=== PATIENT | male | born 1945 | race Caucasian/White ===

== ENCOUNTER 2022-04-30 15:18 | Emergency (ER) | payer MEDICARE, SELFPAY ==
--- NOTE | ~2022-04-30 | XR_ITS ---
EXAMINATION:XR_[id number] DATE: 04/30/2022 16:39 INDICATION: Neck pain TECHNIQUE: AP, lateral, lateral swimmers and odontoid views of the cervical spine are provided. COMPARISON: None FINDINGS: There are 2 mm of anterolisthesis of C4 on C5 and 1 mm retrolisthesis of C5 on C6. The odon toid is intact. No fracture is identified. The vertebral body heights are maintained. There is severe loss of intervertebral disc space height at C5-6 and C6-7. Prevertebral soft tissues are normal. The re is severe multilevel facet and uncovertebral joint osteoarthritis. IMPRESSION: 1. Severe cervical spondylosis without acute findings. Reviewed, dictated and finalized at location L.
--- NOTE | ~2022-04-30 | XR_ITS ---
EXAMINATION: XR shoulder RT min 2V DATE: 04/30/2022 15:51 INDICATION: Right shoulder pain post fall TECHNIQUE: AP internally and externally rotated, AP oblique externally rotated and axillary views of the right shoulder were obtained. COMPARISON: None FINDINGS: Normal alignment. No fracture.Mild glenohumeral and acromioclavicular osteoarthritis. Visualized por tion of the right lung are clear. Soft tissues are unremarkable. IMPRESSION: Mild right glenohumeral and acromioclavicular osteoarthritis. No acute osseous abnormality. Reviewed, dictated and finalized at location A.
[2022-04-30 15:39] VITALS: BP 125/70; PULSE 50; RESP 18; TEMP 36.8; O2SAT 97
--- NOTE | 2022-04-30 15:46 | ED.UPPEXIN ---
HPI - Extremity Injury (Upper) General Chief Complaint: Extremity Injury, Upper Stated Complaint: fall Time Seen by Provider: 04/30/22 15:46 History of Present Illness HPI narrative: Sathya Retana is a 77 yo male with no PMH who fell today on the wet grass onto his right shoulder. He has difficulty moving his R arm, barely can striaghten it to 90 degrees without pain.After sitting in room weaiting on Xray results, abrasion apparent to R cheek and feels tightness in neck- will Xray cervical spine also Related Data Allergies Allergy/AdvReac Type Severity Reaction Status Date / Time No Known Allergies Allergy Verified 04/30/22 15:46 Review of Systems Review of Systems: CONSTITUTIONAL: Denies fever, chills, sweats. EYES: Denies visual changes, redness, discharge. ENT: Denies rhinorrhea, congestion, sore throat, otalgia. CARDIOVASCULAR: Denies chest pain, palpitations, edema. RESPIRATORY: Denies dyspnea, wheezing, cough GASTROINTESTINAL: Denies abdominal pain, nausea, vomiting, diarrhea. GENITOURINARY: Denies dysuria, hematuria, abnormal discharge SKIN: Denies rash or itching. NEUROLOGIC: Denies numbness, or focal weakness. PSYCHIATRIC: Denies anxiety or depression. The R/L shoulder is without obvious asymmetry or deformity when comparing to R/L shoulder. Pain with lifting; denies head or neck pain Later, stated neck feels tight on R and small red abrasion to R upper cheek bone PMFSH Past Medical History Medical History Detached retina Social History Social History (Updated 04/30/22 @ 15:49 by Dagmar Morton CNP) Smoking status: Never smoker Living arrangements: with family Comments At time of signature, I agree with nursing past medical, surgical, social and family history. There is no relevant family history pertinent to the presenting complaint. Exam Narrative: GENERAL: This is a well-nourished, well-developed patient, in mild distress. HEAD: normocephalic, atraumatic. EYES: PERRL. Sclera clear/white. Vision is grossly intact. EARS: External ears normal, auditory canals clear and without drainage, TMs normal without perforation. Hearing grossly intact. NOSE: External nose normal without nasal discharge, nares without redness, no rhinorrhea. THROAT: Mucous membranes moist, posterior pharynx NECK: Neck supple, non-tender CARDIOVASCULAR: Regular rate and rhythm without murmurs, gallops, or rubs. RESPIRATORY: Clear to auscultation. Breath sounds equal bilaterally. No wheezes, rales, or rhonchi. GASTROINTESTINAL: Abdomen soft, non-tender, SKIN: warm, intact with no suspicious lesions or rash, good texture and turgor.small red abrasion to R upper cheek and oriental orthodox NEURO: awake, alert, and oriented to person, place and time. There were no obvious focal neurologic abnormalities. Steady gait EXTREMITIES: Normal range of motion. R arm can elevate to 80 degrees without pain; now complaining of tightness R side of neck BACK: Nontender without deformity Course Course Emergency Course: Fell on the wet grass today when he tripped over his foot and fell onto her right shoulder Xray right shoulder shows no fracture mild glenohumeral and acromioclavicular osteoarthritis visualized right portion lungs are clear soft tissue unremarkable Cervical spine [id number] cervical spondylosis without acute findings, 2 mm and throat lithiasis of C4 on C5 and 1 mm retrolithiasis of C5 and C6 the odontoid is intact no fracture is identified vertebral body heights are maintained placed in sling; given baclofen 5 mg twice a day patient is not to drive until he sees how sleepy it makes him Level of Care: Express Care Visit Vital Signs Vital signs: Vital Signs Temperature 98.3 F 04/30/22 15:39 Pulse Rate 50 L 04/30/22 15:39 Respiratory Rate 18 04/30/22 15:39 Blood Pressure 125/70 04/30/22 15:39 Pulse Oximetry 97 04/30/22 15:39 Oxygen Delivery Room Air 04/30/22 15:39
== END 2022-04-30 16:55 | disposition home or self-care (01) ==
PROVIDERS: Emergency Provider Nurse Practitioner; PCP Family Medicine
DX: M25.511 Pain in right shoulder (principal); S16.1XXA Strain of muscle, fascia and tendon at neck level, initial encounter; W19.XXXA Unspecified fall, initial encounter
CPT/HCPCS: 72040; 73030; 99214; A4565; G0463

== ENCOUNTER 2022-11-11 17:07 | Emergency (ER) | payer MEDICARE, SELFPAY ==
[2022-11-11] VITALS (13 sets, daily range): BP systolic 107–155; BP diastolic 51–79; PULSE 56–90; RESP 16–61; TEMP 36.4; O2SAT 88–100
--- NOTE | ~2022-11-11 | CT_ITS ---
EXAMINATION: CT abdomen pelvis w con DATE: 11/11/2022 20:11 INDICATION: Bilateral lower abdominal pain. TECHNIQUE: Computed tomography (CT) of the abdomen and pelvis was performed with 100 mL Omnipaque-350 intravenous contrast. Automated exposure control and iterative reconstruction technique were employe d. The dose-length product was 351.68 mGy-cm. COMPARISON: None FINDINGS: Mild linear discoid atelectasis/scarring the bilateral lower lobes with bronchiectatic changes at the posterior basilar left lower lobe. Heart size is normal. No pericardial or pleural effusion. Small s liding-type hiatal hernia. 5.3 cm cyst in the left hepatic lobe. Mild focal hepatic steatosis at the ligamentum teres. Gallbladder, pancreas, spleen and bilateral adrenal glands are normal. Parapelvic c ysts at both kidneys. 2 mm stone at the left ureterovesicular junction with mild left hydroureteronep hrosis and small amount anterior left perinephric stranding. Moderate scattered colonic diverticulosi s. There is focal wall thickening and mild inflammatory stranding along the ascending colon consisten t with diverticulitis. Small bowel and appendix are normal. Bladder is normal. Prostatomegaly measuri ng 6.0 x 4.7 cm. No free intraperitoneal gas or fluid. No pathologically enlarged abdominal or pelvic lymphadenopathy. Postoperative change of bilateral inguinal hernia repairs. Lumbar dextroscoliosis w ith severe spondylosis. IMPRESSION: 1. Radiographically uncomplicated diverticulitis along the ascending colon. 2. 2 mm obstructing stone at left ureterovesicular junction with mild left hydronephrosis and perinep hric stranding. Correlate with urinalysis. 3. Hiatal hernia. Reviewed, dictated and finalized at location A. [facility] IMPRESSION: 1. Radiographically uncomplicated diverticulitis along the ascending colon. 2. 2 mm obstructing stone at left ureterovesicular junction with mild left hydr onephrosis and perinephric stranding. Correlate with urinalysis. 3. Hiatal hernia.
[2022-11-11 18:30] LABS: Basophils Percent Auto 0.2 % (0.2-1.2); Hematocrit 44.4 % (42.0-52.0); Hemoglobin 15.1 g/dL (14.0-18.0); Immature Granulocyte Absolute 0.04 K/mm3 (0.00-0.031); Immature Granulocyte Percent A 0.3 % (0-0.5); Lymphocytes Absolute Auto 0.36 K/mm3 (0.9-3.2); Mean Corpuscular Hemoglobin 32.4 pg (26-34); Mean Corpuscular Volume 95.3 fl (80-100); Mean Platelet Volume 10.2 fl (7.4-10.4); Monocytes Absolute Auto 0.5 K/mm3 (0.1-0.6); Monocytes Percent Auto 3.7 % (2.6-8.5); Neutrophils Absolute Auto 11.3 K/mm3 (1.3-6.7); Neutrophils Percent Auto 92.8 % (45.5-73.1); Platelet Count Result 239 k/mm3 (150-375); Red Blood Count 4.66 M/mm3 (4.6-6.20); White Blood Count 12.2 K/mm3 (4.5-10.0)
[2022-11-11 18:44] LABS: Alanine Aminotransferase 22 U/L (6-50); Albumin Level 4.6 g/dL (3.5-5.1); Alkaline Phosphatase 57 U/L (38-126); Anion Gap 12 mmol/L (8-16); Aspartate Amino Transferase 23 U/L (17-59); Bilirubin,Total 1.2 mg/dL (0.2-1.3); Blood Urea Nitrogen 27 mg/dL (9-20); Calcium 9.4 mg/dL (8.4-10.2); Carbon Dioxide 21 mmol/L (22-30); Chloride 104 mmol/L (98-107); Estimated CRCL calculation 39 ml/min; Estimated Glomerular Filt Rate 46; Glucose 167 mg/dL (65-110); Lipase 63 U/L (23-300); Potassium 4.3 mmol/L (3.4-5.0); Sodium 137 mmol/L (137-145)
--- NOTE | 2022-11-11 19:28 | ED.ABDPAIN ---
HPI - Abdominal Pain General Chief Complaint: Abdominal Pain Stated Complaint: abdominal cramping Time Seen by Provider: 11/11/22 19:07 History of Present Illness HPI narrative: 77M w/no sig PMH, presents to the ED, complaining of bilateral lower abdominal pain, beginning earlier this evening, described as cramping, rated 8/10 and constant. He states he has not had a pain like this before. He vomited multiple times this evening without blood. He had a loose stool without blood and is able to pass gas. Related Data Allergies Allergy/AdvReac Type Severity Reaction Status Date / Time No Known Allergies Allergy Verified 04/30/22 15:46 Review of Systems Review of Systems: CONSTITUTIONAL: Denies fever, chills, or sweats. EYES: Denies visual changes, redness, or discharge. ENT: Denies rhinorrhea, congestion, sore throat, or otalgia. CARDIOVASCULAR: Denies chest pain, palpitations, or edema. RESPIRATORY: Denies cough or dyspnea. GASTROINTESTINAL: abdominal pain, nausea and vomiting, Denies diarrhea. GENITOURINARY: Dysuria denies hematuria. SKIN: Denies rash or itching. MUSCULOSKELETAL: Denies back pain, joint pain, or myalgia. NEUROLOGIC: Denies headache, numbness, dizziness, or weakness. PSYCHIATRIC: Denies anxiety or depression. PMFSH Past Medical History Medical History Detached retina Social History Social History (Updated 04/30/22 @ 15:49 by Dagmar Morton, LAILA) Smoking status: Never smoker Living arrangements: with family Exam Narrative: GENERAL: Well-developed, well-nourished, appears uncomfortable HEAD: Normocephalic, atraumatic. EYES: PERRLA and EOMI. ENT: Nares clear, no rhinorrhea or epistaxis. Mucous membranes moist. Oropharynx without tonsillar hypertrophy exudate or other lesions. CHEST: Clear to auscultation. No respiratory distress. No wheezes rales or rhonchi HEART: Regular rate and rhythm. No murmur heard. Normal peripheral pulses. ABDOMEN: Soft, diffusely tender to palpation, nondistended, normal active bowel sounds. No CVA tenderness to palpation EXTREMITIES: Normal range of motion. No edema. SKIN: Warm, dry, no rash. NEURO: No focal deficits. Alert and oriented x3. PSYCH: Normal mood and affect. Course Course Emergency Course: 20:25 - Received notification from Radiologist Dr. Garg. Uncomplicated diverticulitis and a 2mm left ureterolith was seen. The patient continues to complain of abdominal pain. He has not been able to provide a urine sample. Chemistries demonstrate mild dehydration. WBC mildly elevated at 12.2. 20:50 - Bladder scan shows patient only had 25mL in his bladder. Will give additional fluids. 23:00 - UA not concerning for UTI. The patient states his pain is much better. Will discharge. Discussed return and emergency precautions including signs/symptoms of acute abdomen. All questions answered to the patient's satisfaction. Vital Signs Vital signs: Vital Signs Temperature 97.6 F 11/11/22 17:26 Pulse Rate 90 11/11/22 17:26 Respiratory Rate 18 11/11/22 17:26 Blood Pressure 107/73 11/11/22 17:26 Pulse Oximetry 98 11/11/22 17:26 Temperature 97.6 F 11/11/22 17:26 Pulse Rate 56 L 11/11/22 23:01 Respiratory Rate 16 11/11/22 22:45 Blood Pressure 125/72 11/11/22 23:01 Pulse Oximetry 95 11/11/22 23:01 MDM - Abdominal Pain MDM Narrative Medical decision making narrative: PLan: Labs, imaging, pain control, reassess Differential Diagnosis Differential diagnosis: Likely calculus of kidney, diverticulitis, gastroenteritis, pancreatitis, small bowel obstruction and other (urinary retention, metabolic abnormality, Other) Lab Data 11/11/22 18:20 11/11/22 18:20 Labs: Lab Results 11/11/22 11/11/22 11/11/22 Range/Units 18:20 18:20 22:08 WBC 12.2 H (4.5-10.0) K/mm3 RBC 4.66 (4.6-6.20) M/mm3 Hgb 15.1 (14.0-18.0) g/dL Hct 44.4 (42.0-5
--- NOTE | 2022-11-11 19:30 | PC.NURSE ---
pt c/o lower abd pain and n/v since 30. denies any problems with urination/bowels.
[2022-11-11] MEDS: PROCHLORPERAZINE EDISYLATE 10 MG/2 ML VIAL IV PUSH (19:38)
[2022-11-11] MEDS: MORPHINE SULFATE (*CRX) 4 MG/ML INJ IV PUSH (19:39)
[2022-11-11] MEDS: SODIUM CHLORIDE 0.9% IV 1,000 ML 999 ML IV CONT (19:39)
[2022-11-11] MEDS: HYDROmorphone HCL INJ (*CRX) 1 MG/ML SYR 0.5 MG IV PUSH (20:28)
[2022-11-11] MEDS: SODIUM CHLORIDE 0.9% IV 1,000 ML 30 ML IV CONT (21:08)
[2022-11-11] MEDS: metroNIDAZOLE 250 MG TABLET 500 MG PO (21:11)
[2022-11-11] MEDS: CIPROFLOXACIN 500 MG TAB PO (21:12)
[2022-11-11 22:18] LABS: Appearance Urine Clear (Clear); Bilirubin Urine Negative (Negative); Blood Urine 2+ (Negative); Color Urine Yellow (Yellow); Glucose Urine UA Negative (Negative); Ketones Urine 3+ mg/dL (Negative); Leukocyte Esterase Ur Negative LEU/UL (Negative); Nitrate Urine Negative (Negative); Protein Urine Negative (Negative); Urobilinogen Urine 0.2 mg/dL (<2.0); pH Urine 5.5 (5.0-9.0)
[2022-11-11 22:26] LABS: Add Urine Microscopic? YES
== END 2022-11-12 00:08 | disposition home or self-care (01) ==
PROVIDERS: Emergency Medicine; Emergency Provider Preventive Medicine Aerospace Medicine; PCP Family Medicine
DX: N20.1 Calculus of ureter (principal); K57.92 Diverticulitis of intestine, part unspecified, without perforation or abscess without bleeding
CPT/HCPCS: 36415; 74177; 80053; 81001; 83690; 85025; 96361; 96374; 96375; 99284; A9270; J0131; J0780; J1170; J2270; J7030; Q9967

== ENCOUNTER 2024-02-03 08:14 | Emergency (ER) | payer MEDICARE, SELFPAY ==
[2024-02-03 08:26] VITALS: BP 112/65; PULSE 50; RESP 18; TEMP 36.4; O2SAT 100
--- NOTE | 2024-02-03 08:26 | ED.MALEGU ---
HPI - Male Genitourinary General Chief complaint: Urogenital-Male Stated complaint: Urinary Problems Time Seen by Provider: 02/03/24 08:26 Source: patient and RN notes reviewed Mode of arrival: ambulatory Limitations: no limitations History of Present Illness HPI Narrative: 78-year-old male presented for concern for UTI. He reports 3 days of pain with urination, decreased urinary output, and hesitancy. Pain is described as craming to lower abdomen. Reports hx kidney stones. Endorses chronic weak stream, unchanged. Denies hematuria, nausea, vomiting, abdominal pain, flank pain, constipation, diarrhea, fevers or chills. No treatment for symptoms. Has not had to f/u with urology, states stones were passed. Related Data Allergies Allergy/AdvReac Type Severity Reaction Status Date / Time No Known Allergies Allergy Verified 02/03/24 08:26 Review of Systems Review of Systems: CONSTITUTIONAL: Denies body aches, fever, chills, or sweats. CARDIOVASCULAR: Denies chest pain, palpitations, or edema. RESPIRATORY: Denies cough or dyspnea. GASTROINTESTINAL: Denies abdominal pain, nausea, vomiting, or diarrhea. GENITOURINARY: Reports dysuria, frequency, hesitancy, denies urgency, hematuria, flank pain SKIN: Denies rash, itching, or wounds. MUSCULOSKELETAL: Denies back pain or myalgia. [facility] Past Medical History Medical History Detached retina Social History Social History Smoking status: Never smoker Living arrangements: with family Comments At time of signature, I have reviewed and agree with nursing past medical, surgical, social and family history unless otherwise noted. Please see nursing chart for further information. There is no relevant family history pertinent to the presenting complaint Exam Narrative: GENERAL: Well-appearing and in no acute distress. ENT: Mucous membranes pink and moist. NECK: Normal AROM. Supple. CHEST: No respiratory distress. Clear to auscultation. HEART: Regular rate and rhythm. ABDOMEN: Soft, nontender, nondistended, normal active bowel sounds. No CVA tenderness SKIN: Warm, dry, no rash. NEURO: No focal deficits. Alert and oriented x3. Gait steady. PSYCH: Normal affect. No signs of depression or anxiety. Course Course Emergency Course: Patient is aware of diagnosis, understands and agrees to treatment plan. Anticipatory guidance given. Patient agrees to follow-up as directed and is aware of reasons to seek care at the emergency department. Portions of this record may have been created with voice recognition software Level of Care: Express Care Visit Vital Signs Vital signs: Vital Signs Temperature 97.6 F 02/03/24 08:26 Pulse Rate 50 L 02/03/24 08:26 Respiratory Rate 18 02/03/24 08:26 Blood Pressure 112/65 02/03/24 08:26 Pulse Oximetry 100 02/03/24 08:26 Oxygen Delivery Room Air 02/03/24 08:26 Temperature 97.6 F 02/03/24 08:27 Pulse Rate 50 L 02/03/24 08:27 Respiratory Rate 18 02/03/24 08:27 Blood Pressure 112/65 02/03/24 08:27 Pulse Oximetry 100 02/03/24 08:27 Oxygen Delivery Room Air 02/03/24 08:27 Reviewed MDM - Male Genitourinary MDM Narrative Medical decision making narrative: Discussed physical exam findings and urine dip. Given his hx renal stones, will send Rx tamsulosin and macrobid. Strainer provided. Advised supportive measures and signs/symptoms to go to the ER at length. Pt is well appearing, only pain is with urination. Provided with referral and new pcp list. Pt is appropriate for outpt treatment and f/u. Differential Diagnosis Differential diagnosis: Likely urinary tract infection, urethritis, prostatitis, acute retention of urine and other (renal colic, nephrolithiasis) Lab Data Labs: Urine Glucose Negative Referenc
[2024-02-03 08:27] VITALS: BP 112/65; PULSE 50; RESP 18; TEMP 36.4; O2SAT 100
== END 2024-02-03 09:18 | disposition home or self-care (01) ==
PROVIDERS: Emergency Provider Nurse Practitioner Family
DX: R30.0 Dysuria (principal)
CPT/HCPCS: 81003; 87086; 87088; 99213; G0463

== ENCOUNTER 2024-08-24 09:05 | Emergency (ER) | payer MEDICARE, SELFPAY ==
[2024-08-24 09:13] VITALS: BP 113/75; PULSE 53; RESP 18; TEMP 36.6; O2SAT 98
--- NOTE | 2024-08-24 09:13 | ED_ITS ---
HPI - Ear Problem General Chief complaint: Ear Stated complaint: Bilateral Ear Clog Time Seen by Provider: 08/24/24 09:16 Source: patient Mode of arrival: ambulatory Limitations: no limitations History of Present Illness HPI Narrative: Patient is a 79-year-old male who presents bilateral clogged ears. Patient has tried the [place] with only a small amount of wax removed. Patient gets ears irrigated frequently. Denies any congestion, sore throat, fever, chills, nausea, vomiting, diarrhea. MD Complaint: ear pain Related Data Allergies Allergy/AdvReac Type Severity Reaction Status Date / Time No Known Allergies Allergy Verified 08/24/24 09:13 Review of Systems Review of Systems: All systems reviewed & are unremarkable except as noted in HPI and below Constitutional: Constitutional: Denies body ache(s), Denies chills, Denies fever(s), Denies headache(s) and Denies malaise Eyes: Eyes: Denies blurry vision, Denies eye discharge and Denies irritation ENT: Reports otalgia, Denies headache(s), Denies nasal congestion, Denies nasal discharge and Denies sore throat Cardiovascular: Cardiovascular: Denies chest pain, Denies edema, Denies palpitations and Denies dyspnea on exertion Respiratory: Respiratory: Denies cough and Denies dyspnea on exertion Gastrointestinal: Gastrointestinal: Denies abdominal pain, Denies diarrhea, Denies nausea and Denies vomiting Musculoskeletal: Musculoskeletal: Denies back pain, Denies arthralgias and Denies muscle weakness Integumentary/Breasts: Skin/Breast: Denies pruritus and Denies rash Neurologic: Denies headache(s) Psychiatric: Psychiatric: Reports no additional psychiatric complaints Endocrine: Endocrine: Denies palpitations PMFSH Past Medical History Medical History Bradycardia CKD (chronic kidney disease) stage 3, GFR 30-59 ml/min Decreased renal clearance Detached retina Elevated glucose Elevated PSA, between 10 and less than 20 ng/ml Elevated serum creatinine Elevated TSH Hx of renal calculi Hyperlipidemia Impacted cerumen of both ears Nocturia Surgical History Surgical History Hx of hernia repair Hx of tonsillectomy Social History Social History Smoking status: Never smoker Alcohol intake: current Alcohol use details: Beer/Wine Substance use: never Living arrangements: with family Comments At time of signature, agree with nursing past medical, surgical, social and family history. There is no relevant family history pertinent to the presenting complaint? Exam Const: General: cooperative, healthy appearing, no acute distress and well nourished Nutritional Appearance: well nourished Rodrigue entation/consciousness: patient oriented x3 Limitations: no limitations HENMT: Head: normal to inspection, normocephalic and atraumatic Ears: hearing grossly normal bilaterally, EAC's normal, no periauricular adenopathy and TM abnormal obstructed by cerumen bilateral Face/Nose/Sinus: Normal external nose present, Normal nares present, Normal nasal mucous membranes and turbinates present, No nasal discharge present, normal facial exam and sinuses nontender Face and sinus: normal facial exam and sinuses nontender Mouth: Yes Normal oral and palatal mucosa present, Yes lip normal, Yes tongue normal and Yes moist mucous membranes Throat: posterior oropharynx normal, tonsils normal and uvula midline Eyes: General: appearance normal, both eyes and all related structures Alignment and Position: alignment normal and position normal Eyelids: eyelids normal Pupils: Equal, round and reactive pupils present EOM: EOMs intact bilaterally Neck: Neck: normal visual inspection, full ROM, no lymphadenopathy and supple Chest: Chest palpation & inspection: normal inspection of the chest Resp: Effort & Inspection: normal respiratory effort and able to speak in complete sentences Auscultation: clear to auscultation bilaterally, no crackles, no rales, no rhonchi and no wheezes Cardio: Rate: regular rate Rhythm: regular rhythm Heart sounds: S1 normal heart sound present and S2 normal heart sound present Skin: General skin exam: normal color and no rashes or lesions noted Neuro: General: patient oriented x3 and moves all extremities Cranial nerves: Yes Equal, round and reactive pupils present Cognition (Neuro): normal cognition Speech: normal speech Gait exam (Neuro): Normal gait present Extrem: General: normal to inspection and full ROM Psych: Appearance: grossly normal and well kempt Mental Status: mental status grossly normal Speech and movement: Normal speech and movement present Course Course Emergency Course: Patient is aware of diagnosis, understands and agrees to treatment plan.? Anticipatory guidance given.? Patient agrees to follow-up as directed and is aware of reasons to seek care at the emergency department.? Portions of this record may have been created with voice recognition software? Level of Care: Express Care Visit Vital Signs Vital signs: Reviewed Procedures Ear Wax Removal Both Ears: Ear Wax Removal Date: 08/24/24 Ear Wax Removal Time: 09:17 Results: Re-examined: cerumen removed completely TM Examination: TM(s) intact, normal appearance Ear Canal Exam: atraumatic Patient Tolerated Procedure: well and no complications Complications: no problems Technique: ear canal irrigated and ear canal curetted Additional Comments: Procedure explained patient. Verbal consent obtained. Large amounts of wax removed from both ears. Patient reports immediate relief of symptoms. Medical Decision Making MDM Narrative Medical decision making narrative: Discharge instructions reviewed with patient, as well as provided in writing per nursing staff. The instructions also include specific and strict return/GO TO THE ER as well as f/u information. All questions have been answered, and the patient deny any further questions with discharge and discharge plan. Differential diagnosis considered: [place] virus, strep pharyngitis, allergic rhinitis, upper respiratory tract infection, sinusitis, rhinosinusitis, nasopharyngitis. viral pharyngitis, otitis media, otitis externa, otitis effusion, foreign body, cerumen impaction, viral syndrome, and influenza.? Exam findings show no acute concerns or changes; patient is non-toxic appearing and is in no distress.? Patient is appropriate for outpatient treatment and follow- up.? Medical Records Medical records reviewed: Yes I reviewed the external patient's medical records. Discharge Plan Discharge Clinical Impression: Cerumen impaction Qualifiers: Laterality: bilateral Qualified Code(s): H61.23 - Impacted cerumen, bilateral Patient Disposition: Home, Self-Care Condition: Stable Instructions: Carbamide Peroxide (Into the ear) Additional Instructions: -Ear drops as directed -When administer drug into the affected ear; make sure to lay down with the affected ear facing upward, message the ear canal to help the drops reach the medial end of the canal, then remain in that position for at least 5 minutes. -Avoid using cotton tipped applicator for ears cleaning -Avoid exposing swimming or exposing the affected ear to water during the treatment period Take or alternate tylenol or ibuprofen every 4 - 6 hours if needed for pain. Follow up with primary care provider if condition is not improving in 7 days or sooner if there is new concern. Prescriptions: No Action tamsulosin 0.4 mg capsule 0.4 mg PO DAILY Qty: 30 11RF Follow-up/Referrals: Uvaldo Tovar MD [Primary Care Provider] - 3 Days Time of Disposition: 09:41
[2024-08-24] MEDS: HYDROGEN PEROXIDE 3% SOLN(*SP) 473 ML BOTTLE 15 ML IRRIGATION (09:30)
== END 2024-08-24 09:47 | disposition home or self-care (01) ==
PROVIDERS: Emergency Provider Nurse Practitioner Family; PCP Family Medicine
DX: H61.23 Impacted cerumen, bilateral (principal); N18.30 Chronic kidney disease, stage 3 unspecified; E78.5 Hyperlipidemia, unspecified
CPT/HCPCS: 69210; 99212; G0463